=== PATIENT | female | born 1995 | race Caucasian/White ===

== ENCOUNTER 2020-11-13 15:32 | Emergency (ER) | payer OTHER ==
[~2020-11-13 15:32] MED LIST: CITALOPRAM HBR20 MG PO; TRAZODONE 100M100 MG PO; WELLBUTRIN XL300 MG PO
== END 2020-11-13 20:15 | disposition home or self-care (01) ==
LOC: FER 15:32
DX: S86.212A Strain of muscle(s) and tendon(s) of anterior muscle group at lower leg level, left leg, initial encounter (principal); W19.XXXA Unspecified fall, initial encounter; Y92.89 Other specified places as the place of occurrence of the external cause; Y99.0 Civilian activity done for income or pay
CPT/HCPCS: 73564

== ENCOUNTER 2020-12-21 20:40 | Emergency (ER) | payer OTHER ==
[2020-12-21 21:42] LABS: BASOPHIL 0.4 % (0-2); EOSINOPHIL 1.2 % (0-5); HCT 40.8 % (37.0-47.0); HGB 13.8 g/dl (12.5-16.0); LYMPHOCYTE 40.8 % (15-48); MCH 28.8 pg (25.0-31.0); MCHC 33.8 g/dL (32.0-36.0); MONOCYTE 8.3 % (0-12); MPV 9.2 fL (6.0-9.5); NEUTROPHIL 49.1 % (41-80); NRBC 0; PLT 296 K/uL (150-400); RDW 12.5 % (11.5-14.0); WBC 10.5 K/uL (4.0-10.5)
[2020-12-21 21:44] LABS: BILIRUBIN NEGATIVE (NEGATIVE); BLOOD NEGATIVE Ery/uL (NEGATIVE); CLARITY CLOUDY (CLEAR); COLOR YELLOW (YELLOW); GLUCOSE (U) NORMAL (NORMAL); LEUKOCYTES 2+ Leu/uL (NEGATIVE); NITRITE NEGATIVE (NEGATIVE); PROTEIN TRACE (LOW) mg/dL (NEGATIVE); SPECIFIC GRAVITY >=1.030 (1.001-1.030); UROBILINOGEN 0.2 mg/dL (0.2-1.0)
[2020-12-21 21:46] LABS: HCG (URINE) SCREEN NEGATIVE (NEGATIVE)
[2020-12-21 21:52] LABS: BACTERIA 4+; CALCIUM OXALATE CRYSTALS LARGE; SQUAMOUS EPITHELIAL CELLS >50
[2020-12-21 22:07] LABS: BUN/CREAT RATIO (CALC) 21.9 RATIO; CREATININE 0.64 mg/dL (0.51-0.95); POTASSIUM 3.8 mmol/L (3.5-5.1)
[2020-12-21] MEDS ORDERED: CEPHALEXIN500 M1 PO (23:01)
== END 2020-12-21 23:40 | disposition home or self-care (01) ==
LOC: FER 20:40
PROVIDERS: Student in an Organized Health Care Education/Training Program
DX: N39.0 Urinary tract infection, site not specified (principal); F17.290 Nicotine dependence, other tobacco product, uncomplicated; Z87.442 Personal history of urinary calculi; Z98.890 Other specified postprocedural states
CPT/HCPCS: 36415; 80048; 81001; 84703; 85025; J0696; J1885; J2270; J2405; J7030

== ENCOUNTER 2021-04-07 17:27 | Emergency (ER) | payer OTHER ==
[~2021-04-07 17:27] MED LIST changes: +CEPHALEXIN500 M1 PO
[2021-04-07 18:43] LABS: BILIRUBIN NEGATIVE (NEGATIVE); BLOOD NEGATIVE Ery/uL (NEGATIVE); CLARITY CLEAR (CLEAR); COLOR YELLOW (YELLOW); GLUCOSE (U) NORMAL (NORMAL); LEUKOCYTES TRACE Leu/uL (NEGATIVE); NITRITE NEGATIVE (NEGATIVE); PROTEIN NEGATIVE (NEGATIVE); SPECIFIC GRAVITY >=1.030 (1.001-1.030); UROBILINOGEN 0.2 mg/dL (0.2-1.0)
[2021-04-07 18:49] LABS: BACTERIA 2+; MUCOUS TRACE; SQUAMOUS EPITHELIAL CELLS 20-50
== END 2021-04-07 20:05 | disposition home or self-care (01) ==
LOC: FER 17:27
PROVIDERS: Nurse Practitioner Family
DX: B34.9 Viral infection, unspecified (principal); I10 Essential (primary) hypertension; Z20.822 Contact with and (suspected) exposure to COVID-19; Z90.49 Acquired absence of other specified parts of digestive tract
CPT/HCPCS: 81001; 87088; 99283; U0002